=== PATIENT | male | born 1940 | race Caucasian/White ===

== ENCOUNTER → 2023-09-04 | Outpatient (CLI) | payer MEDICARE ==
[2023-09-04 14:51] LABS: C REACTIVE PROTEIN QUANTITATIV < 0.40 MG/DL (<1.0)
[2023-09-04 14:53] LABS: RHEUMATOID FACTOR QUANT 46.6 IU/ML (<14)
== END ==
LOC: M LAB 13:21
PROVIDERS: ATTEND Internal Medicine Pulmonary Disease
DX: J84.9 Interstitial pulmonary disease, unspecified (principal)